=== PATIENT | male | born 1960 | race Caucasian/White ===

== ENCOUNTER → 2017-05-21 | Outpatient (CLI) | payer OTHER ==
[~2017-05-21] MED LIST: LISINOPRIL10 MG PO; MOTRIN800 MG; PROZAC; SUBOXONE1 FI1 SL
[2017-05-21 16:16] LABS: VITAMIN D, 25-HYDROXY 18.5 ng/mL (30-100)
== END | disposition home or self-care (01) ==
LOC: LAB 14:11
PROVIDERS: Family Medicine
DX: Z12.5 Encounter for screening for malignant neoplasm of prostate (principal); N40.0 Benign prostatic hyperplasia without lower urinary tract symptoms; E55.9 Vitamin D deficiency, unspecified; D64.9 Anemia, unspecified; R53.83 Other fatigue

== ENCOUNTER → 2017-08-27 | Outpatient (CLI) | payer OTHER ==
[2017-08-27 16:49] LABS: ALKALINE PHOSPHATASE 42 U/L (45-117); BUN 17 mg/dl (7-24); CHLORIDE 105 mmol/L (98-107); CHOLESTEROL 146 mg/dL (<200); CPK 258 U/L (39-308); CREATININE 1.27 mg/dL (0.70-1.30); HDL CHOLESTEROL 65 mg/dl (40-60); LDL CHOLESTEROL 69 mg/dL (9-159); POTASSIUM 4.3 mmol/L (3.5-5.1); SGOT/AST 12 IU/L (3-35); SGPT/ALT 22 U/L (12-78); SODIUM 136 mmol/L (136-145); TOTAL PROTEIN 7.7 gm/dL (6.4-8.2); TRIGLYCERIDES 60 mg/dl (<150); VLDL CHOLESTEROL 12 mg/dL (6-40)
== END | disposition home or self-care (01) ==
LOC: LAB 16:12
PROVIDERS: Family Medicine
DX: E78.00 Pure hypercholesterolemia, unspecified (principal); I10 Essential (primary) hypertension; E55.9 Vitamin D deficiency, unspecified

== ENCOUNTER → 2017-12-24 | Outpatient (CLI) | payer OTHER ==
[2017-12-24 14:57] LABS: HEMATOCRIT 39.5 % (42.0-52.0); HEMOGLOBIN 12.8 g/dl (14.0-18.0); MEAN CELL VOLUME 86.1 fl (80.0-94.0); MEAN CORPUSCULAR HGB 27.9 pg (27.0-31.0); MEAN CORPUSCULAR HGB CONC 32.4 g/dl (33.0-37.0); MEAN PLATELET VOLUME 8.9 fl (9.6-12.3); RED BLOOD COUNT 4.59 10*6/uL (4.50-5.90); RED CELL DISTRI WIDTH 13.8 % (0-14.5); WHITE BLOOD COUNT 6.7 10*3/uL (4.8-10.8)
[2017-12-24 15:13] LABS: ALBUMIN 4.4 gm/dl (3.1-4.5); ALKALINE PHOSPHATASE 39 U/L (45-117); BUN 14 mg/dl (7-24); CHLORIDE 103 mmol/L (98-107); CHOLESTEROL 161 mg/dL (<200); CREATININE 1.34 mg/dL (0.70-1.30); HDL CHOLESTEROL 67 mg/dl (40-60); LDL CHOLESTEROL 78 mg/dL (9-159); POTASSIUM 4.6 mmol/L (3.5-5.1); SGOT/AST 18 IU/L (3-35); SGPT/ALT 27 U/L (12-78); SODIUM 138 mmol/L (136-145); TOTAL PROTEIN 7.9 gm/dL (6.4-8.2); TRIGLYCERIDES 80 mg/dl (<150); VLDL CHOLESTEROL 16 mg/dL (6-40)
[2017-12-24 15:35] LABS: VITAMIN D, 25-HYDROXY 28.1 ng/mL (30-100)
== END | disposition home or self-care (01) ==
LOC: LAB 14:21
PROVIDERS: Family Medicine
DX: E55.9 Vitamin D deficiency, unspecified (principal); E78.00 Pure hypercholesterolemia, unspecified; I10 Essential (primary) hypertension; N40.0 Benign prostatic hyperplasia without lower urinary tract symptoms

== ENCOUNTER 2018-05-13 22:20 | Inpatient (IN) | payer OTHER ==
[~2018-05-13] VITALS: Ht 177.8 cm; Wt 102.1 kg
--- NOTE | ~2018-05-13 | WRIGHTHP ---
[place], [place] PATIENT HISTORY AND PHYSICAL EXAM NAME: [facility]UZ [facility]: [id number] UNIT #: [id number] ROOM: [facility] DOCTOR: CASSANDRA ABRAHAM MD BIRTHDATE: [birth year] DOS: 05/14/2018 HISTORY OF PRESENT ILLNESS: The patient is a 57-year-old gentleman with a past medical history of benign essential hypertension; chronic back pains; opioid dependence; major depression, recurrent; hyperlipidemia and BPH. The patient presented to the Emergency Department at [facility] after eating dinner. The patient became sick, nauseous, started vomiting, became diaphoretic and had diarrhea. The patient believed he had food poisoning. The patient was found to be in acute kidney failure with elevation of BUN and creatinine and had significant leukocytosis, dehydration. The patient was considered to have severe sepsis and gastroenteritis in the ER. After admission, the patient is starting to feel better. His diarrhea is resolving. No more nausea and vomiting or abdominal pains. OBJECTIVE: VITAL SIGNS: Blood pressure 105/61, heart rate 84 beats per minute, breathing 18 times per minute, temperature of 98.3 degrees Fahrenheit. GENERAL APPEARANCE: The patient is alert and oriented x 3, in no visible distress. HEENT AND NECK: Extraocular movements are intact. Sclerae are anicteric. Oral mucosa is moist and clean. No obvious facial weakness. Neck is supple without any lymphadenopathy. No thyromegaly. No JVD. No carotid arterial bruits. LUNGS: Clear to auscultation. No wheezing. No rhonchi. CARDIOVASCULAR SYSTEM: Heart rate is regular in rate and rhythm. S1 and S2 normally audible. No significant murmur or any other abnormal cardiac sounds. ABDOMEN: Soft, nontender. No obvious organomegaly. Bowel sounds are present. No obvious herniation. EXTREMITIES: Without significant cyanosis or edema. Warm to touch. CENTRAL NERVOUS SYSTEM: Alert and oriented x 3. Cranial nerves II-XII are intact. Speech is normal. The patient is able to move all extremities. Normal muscle strength. Deep tendon reflexes are equal on both sides. Plantars were downgoing. IMPRESSION: 1. The patient has acute gastroenteritis with severe leukocytosis and elevation of BUN and creatinine, is being hydrated with normal saline. I will repeat his blood counts tomorrow. The patient had elevated lactic acid level of 2.6 at admission and BUN and creatinine of 20 and 1.84. 2. Sepsis with elevation of lactic acid level, leukocytosis, acute kidney failure with elevation of BUN and creatinine to 20 and 1.84 along with hypotension with a blood pressure of 96 systolic over 48 diastolic, and low-grade fever of 99.7 degrees Fahrenheit. The patient's condition is improving with the hydration with IV fluids and I will repeat his blood counts, BUN and creatinine tomorrow. The patient's lactic acid levels have already returned to normal with hydration with the normal saline. 3. Benign prostatic hypertrophy and urine retention, asymptomatic with finasteride. 4. Gastroesophageal reflux disease and esophagitis, treated and asymptomatic with omeprazole. 5. Major depression, recurrent, [id number], treated with fluoxetine, [place], [place] PATIENT HISTORY AND PHYSICAL EXAM NAME: JEANNA CRUZ UNIT #: [id number] ROOM: [facility] DOCTOR: CASSANDRA ABRAHAM MD BIRTHDATE: [birth year] asymptomatic. 6. History of prescription opioid addiction, treated with Suboxone, which has been continued. CASSANDRA ABRAHAM MD CM:HISPHYS:PATIENT HISTORY AND PHYSICAL EXAMINATION [id number] [phone] CASSANDRA ABRAHAM MD 05/15/18 [id number] interface
--- NOTE | ~2018-05-13 | DS ---
[place], [place] DISCHARGE SUMMARY NAME: JEANNA CRUZ UNIT #: [id number] ROOM: 501 DOCTOR: CASSANDRA ABRAHAM MD BIRTHDATE: [birth year] DOS: 05/15/2018 DISCHARGE DIAGNOSES: 1. Dehydration, elevation of BUN and creatinine, acute kidney failure, resolved with hydration with normal saline. 2. Acute viral gastroenteritis with vomiting and diarrhea, resolved. 3. Major depression, recurrent, mild. 4. Opioid dependence, the patient on Suboxone. 5. Gastroesophageal reflux disease and esophagitis, asymptomatic with omeprazole. 6. Benign prostatic hypertrophy and urine retention, asymptomatic with finasteride. 7. Chronic constipation. The patient asked to take Colace on a regular basis now. HOSPITAL COURSE: The patient presented to the Emergency Department at [facility] with acute diarrhea, nausea, vomiting with elevation of BUN and creatinine to 20 and 1.8, lactic acid elevation of 2.6 and leukocytosis with a white cell count of 19,300 showing sepsis. The patient was admitted and started on treatment with anti-nausea and hydrated with normal saline and his symptoms resolved. He is completely asymptomatic now, BUN and creatinine and white cell counts have returned to normal. The patient is being discharged to home to follow up with Dr. Nemesio Tuttle, his PCP within this week. FINAL DIAGNOSES: 1. Major depression, recurrent, mild, treated and controlled. The patient on fluoxetine. 2. Benign prostatic hyperplasia and urinary retention, asymptomatic, the patient on finasteride. 3. Opioid dependence, being treated with small dose of Suboxone, which was continued. 4. Chronic constipation for which the patient was recommended to start using Colace 200 mg daily and also reports chronic constipation to his PCP. DISCHARGE MEDICATIONS: The patient will continue on Suboxone as he was getting before, fluoxetine 60 mg daily, omeprazole 40 mg daily, finasteride 5 mg daily, Colace 200 mg a day. [place], [place] DISCHARGE SUMMARY NAME: JEANNA CRUZ UNIT #: [id number] ROOM: [facility] DOCTOR: CASSANDRA ABRAHAM MD BIRTHDATE: [birth year] CASSANDRA ABRAHAM MD CM:ANNI [id number] CASSANDRA ABRAHAM MD 05/15/18 2153 interface
[2018-05-13 22:20] VITALS: BP 93/52
[~2018-05-13 22:20] MED LIST changes: +SUBOXONE 2 MG-1 EACH SL; -SUBOXONE1 FI1 SL
[2018-05-13] MEDS ORDERED: OSTERA TABLET1 EACH PO (22:25)
[2018-05-13] MEDS ORDERED: FLUOXETINE HYDR20 M1 PO (22:25)
[2018-05-13 22:36] LABS: BASO # 0.1 10*3/uL (0.0-0.1); BASO % 0.3 % (0.0-1.0); EOS # 0.2 10*3/uL (0.0-0.4); EOS % 1.2 % (1.0-4.0); HEMATOCRIT 39.9 % (42.0-52.0); HEMOGLOBIN 12.9 g/dl (14.0-18.0); LYMPH # 2.4 10*3/uL (1.3-4.4); LYMPH % 12.4 % (27.0-41.0); MEAN CELL VOLUME 86.7 fl (80.0-94.0); MEAN CORPUSCULAR HGB CONC 32.3 g/dl (33.0-37.0); MEAN PLATELET VOLUME 8.8 fl (9.6-12.3); MONO # 1.1 10*3/uL (0.1-1.0); MONO % 5.8 % (3.0-9.0); NEUT # 15.4 10*3/uL (2.3-7.9); NEUT % 79.8 % (47.0-73.0); PLATELET COUNT AUTOMATED 272 10*3/uL (130-400); RED CELL DISTRI WIDTH 13.9 % (0-14.5); WHITE BLOOD COUNT 19.3 10*3/uL (4.8-10.8)
[2018-05-13 22:44] LABS: ACT PARTIAL THROMBO TIME 20.7 SECONDS (20.8-31.5)
[2018-05-13 22:54] LABS: ALBUMIN 4.4 gm/dl (3.1-4.5); ALKALINE PHOSPHATASE 44 U/L (45-117); BUN 20 mg/dl (7-24); CHLORIDE 105 mmol/L (98-107); CREATININE 1.84 mg/dL (0.70-1.30); POTASSIUM 4.6 mmol/L (3.5-5.1); SGOT/AST 13 IU/L (3-35); SGPT/ALT 20 U/L (12-78); SODIUM 140 mmol/L (136-145)
[2018-05-13 22:55] VITALS: BP 91/85
[2018-05-13 22:55] LABS: TROPONIN I < 0.015 ng/ml (<0.045)
[2018-05-14 00:25] LABS: BILIRUBIN NEGATIVE (NEGATIVE); BLOOD NEGATIVE (NEGATIVE); CLARITY CLEAR (CLEAR); COLOR YELLOW (YELLOW); GLUCOSE NEGATIVE (NEGATIVE); KETONE TRACE (NEGATIVE); LEUKO ESTERASE TRACE (NEGATIVE); NITRITE NEGATIVE (NEGATIVE); PH 5.5 (5.0-9.0)
[2018-05-14 00:31] LABS: BACTERIA 2+; EPITHELIAL CELLS 0-2; HYALINE CAST TNTC; MUCOUS TRACE; RBC 0-2 rbc/hpf (0-2)
[2018-05-14 00:38] LABS: URINE AMPHETAMINES < 1000 (1000ng/ml); URINE BARBITURATES < 200 (200ng/ml); URINE BENZODIAZEPINES < 200 (200ng/ml); URINE CANNABINOIDS (THC) < 50 (50ng/ml); URINE COCAINE < 300 (300ng/ml); URINE METHADONE < 300 (300ng/ml); URINE OPIATES < 300 (300ng/ml); URINE PHENCYCLIDINE < 25 (25ng/ml)
[2018-05-14 01:45] VITALS: BP 99/64
[2018-05-14] MEDS ORDERED: CRESTOR5 MG PO (02:04)
[2018-05-14] MEDS ORDERED: VIT D2 PO (02:12)
[2018-05-14] MEDS ORDERED: PROSCAR5 M1 PO (02:13)
[2018-05-14] MEDS ORDERED: OMEPRAZOLE40 MG PO (02:14)
[2018-05-14] MEDS ORDERED: B12,B-12,B 12500 MC1 PO (02:15)
[2018-05-14 08:00] VITALS: BP 96/48
[2018-05-14] MEDS ORDERED: SUBOXONE 2 MG-1 EACH SL ×2 (10:46→10:48)
[2018-05-14 12:00] VITALS: BP 105/59
[2018-05-14 16:00] VITALS: BP 105/61
[2018-05-14 20:00] VITALS: BP 103/57
[2018-05-15] VITALS: BP 104/58
[2018-05-15 06:36] LABS: BASO % 0.2 % (0.0-1.0); EOS # 0.2 10*3/uL (0.0-0.4); EOS % 2.4 % (1.0-4.0); LYMPH # 2.7 10*3/uL (1.3-4.4); LYMPH % 34.2 % (27.0-41.0); MEAN CELL VOLUME 89.2 fl (80.0-94.0); MEAN CORPUSCULAR HGB 27.6 pg (27.0-31.0); MEAN CORPUSCULAR HGB CONC 30.9 g/dl (33.0-37.0); MEAN PLATELET VOLUME 9.4 fl (9.6-12.3); MONO # 0.6 10*3/uL (0.1-1.0); MONO % 7.6 % (3.0-9.0); NEUT # 4.4 10*3/uL (2.3-7.9); NEUT % 55.4 % (47.0-73.0); PLATELET COUNT AUTOMATED 230 10*3/uL (130-400); RED BLOOD COUNT 3.52 10*6/uL (4.50-5.90); RED CELL DISTRI WIDTH 14.6 % (0-14.5)
[2018-05-15 06:38] LABS: HEMATOCRIT 31.4 % (42.0-52.0); HEMOGLOBIN 9.7 g/dl (14.0-18.0)
[2018-05-15 06:58] LABS: BUN 15 mg/dl (7-24); CHLORIDE 109 mmol/L (98-107); CREATININE 1.09 mg/dL (0.70-1.30); POTASSIUM 4.8 mmol/L (3.5-5.1); SODIUM 140 mmol/L (136-145)
[2018-05-15 08:00] VITALS: BP 113/62
[2018-05-15 12:00] VITALS: BP 122/65
== END 2018-05-15 14:47 | disposition home or self-care (01) | DRG 872 ==
LOC: ED 22:20 → EDHOLD 05-14 00:44 → 5E 05-14 00:53
PROVIDERS: Internal Medicine; Student in an Organized Health Care Education/Training Program
DX: A41.9 Sepsis, unspecified organism (principal); N17.9 Acute kidney failure, unspecified; I95.9 Hypotension, unspecified; F33.1 Major depressive disorder, recurrent, moderate; F11.20 Opioid dependence, uncomplicated; E78.5 Hyperlipidemia, unspecified; G89.29 Other chronic pain; I10 Essential (primary) hypertension; R65.20 Severe sepsis without septic shock; M54.9 Dorsalgia, unspecified; N40.1 Benign prostatic hyperplasia with lower urinary tract symptoms; R33.9 Retention of urine, unspecified; K21.0 Gastro-esophageal reflux disease with esophagitis; E86.0 Dehydration; A08.4 Viral intestinal infection, unspecified; K59.09 Other constipation; Z79.899 Other long term (current) drug therapy; Z82.49 Family history of ischemic heart disease and other diseases of the circulatory system; Z83.3 Family history of diabetes mellitus

== ENCOUNTER → 2018-05-27 | Outpatient (CLI) | payer OTHER ==
[~2018-05-27] MED LIST changes: +B12,B-12,B 12500 MC1 PO; +CRESTOR5 MG PO; +FLUOXETINE HYDR20 M1 PO; +OMEPRAZOLE40 MG PO; +OSTERA TABLET1 EACH PO; +PROSCAR5 M1 PO; +VIT D2 PO
[2018-05-27 14:25] LABS: BUN 14 mg/dl (7-24); CHLORIDE 104 mmol/L (98-107); CHOLESTEROL 221 mg/dL (<200); CPK 149 U/L (39-308); HDL CHOLESTEROL 58 mg/dl (40-60); POTASSIUM 4.1 mmol/L (3.5-5.1); SODIUM 138 mmol/L (136-145)
[2018-05-27 14:27] LABS: ALKALINE PHOSPHATASE 36 U/L (45-117); CREATININE 1.25 mg/dL (0.70-1.30); LDL CHOLESTEROL 154 mg/dL (9-159); SGOT/AST 13 IU/L (3-35); SGPT/ALT 17 U/L (12-78); TOTAL PROTEIN 7.1 gm/dL (6.4-8.2); TRIGLYCERIDES 47 mg/dl (<150); VLDL CHOLESTEROL 9 mg/dL (6-40)
== END | disposition home or self-care (01) ==
LOC: LAB 13:07
PROVIDERS: Family Medicine
DX: K21.9 Gastro-esophageal reflux disease without esophagitis (principal); E78.00 Pure hypercholesterolemia, unspecified; E55.9 Vitamin D deficiency, unspecified

== ENCOUNTER → 2019-01-06 | Outpatient (CLI) | payer OTHER ==
[2019-01-06 16:31] LABS: ALBUMIN 3.9 gm/dl (3.1-4.5); ALKALINE PHOSPHATASE 40 U/L (45-117); BUN 18 mg/dl (7-24); CHLORIDE 106 mmol/L (98-107); CHOLESTEROL 206 mg/dL (<200); CPK 175 U/L (39-308); CREATININE 1.32 mg/dL (0.70-1.30); HDL CHOLESTEROL 61 mg/dl (40-60); LDL CHOLESTEROL 134 mg/dL (9-159); POTASSIUM 5.1 mmol/L (3.5-5.1); SGOT/AST 8 IU/L (3-35); SGPT/ALT 14 U/L (12-78); SODIUM 140 mmol/L (136-145); TOTAL PROTEIN 7.5 gm/dL (6.4-8.2); TRIGLYCERIDES 56 mg/dl (<150); VLDL CHOLESTEROL 11 mg/dL (6-40)
== END | disposition home or self-care (01) ==
LOC: LAB 15:40
PROVIDERS: Family Medicine
DX: E78.00 Pure hypercholesterolemia, unspecified (principal); K21.9 Gastro-esophageal reflux disease without esophagitis; F41.1 Generalized anxiety disorder; E74.00 Glycogen storage disease, unspecified

== ENCOUNTER → 2019-07-14 | Outpatient (CLI) | payer OTHER ==
[2019-07-14 17:15] LABS: HEMATOCRIT 36.2 % (42.0-52.0); HEMOGLOBIN 11.5 g/dl (14.0-18.0); MEAN CORPUSCULAR HGB 27.6 pg (27.0-31.0); MEAN CORPUSCULAR HGB CONC 31.8 g/dl (33.0-37.0); MEAN PLATELET VOLUME 9.3 fl (9.6-12.3); RED BLOOD COUNT 4.16 10*6/uL (4.50-5.90); RED CELL DISTRI WIDTH 13.7 % (0-14.5); WHITE BLOOD COUNT 4.2 10*3/uL (4.8-10.8)
[2019-07-14 17:44] LABS: ALBUMIN 4.1 gm/dl (3.1-4.5); ALKALINE PHOSPHATASE 40 U/L (45-117); BUN 10 mg/dl (7-24); CHLORIDE 106 mmol/L (98-107); CHOLESTEROL 191 mg/dL (<200); CPK 174 U/L (39-308); CREATININE 1.14 mg/dL (0.70-1.30); HDL CHOLESTEROL 55 mg/dl (40-60); LDL CHOLESTEROL 125 mg/dL (9-159); POTASSIUM 4.3 mmol/L (3.5-5.1); SGOT/AST 9 IU/L (3-35); SGPT/ALT 13 U/L (12-78); SODIUM 136 mmol/L (136-145); TOTAL PROTEIN 7.3 gm/dL (6.4-8.2); TRIGLYCERIDES 53 mg/dl (<150); VLDL CHOLESTEROL 11 mg/dL (6-40)
[2019-07-14 17:51] LABS: VITAMIN D, 25-HYDROXY 47.6 ng/mL (30-100)
== END | disposition home or self-care (01) ==
LOC: LAB 15:38
PROVIDERS: Family Medicine
DX: Z12.5 Encounter for screening for malignant neoplasm of prostate (principal); E74.9 Disorder of carbohydrate metabolism, unspecified; E78.00 Pure hypercholesterolemia, unspecified

== ENCOUNTER → 2019-12-22 | Outpatient (CLI) | payer OTHER ==
[2019-12-22 11:49] LABS: HEMATOCRIT 36.4 % (42.0-52.0); HEMOGLOBIN 11.7 g/dl (14.0-18.0); MEAN CELL VOLUME 86.7 fl (80.0-94.0); MEAN CORPUSCULAR HGB 27.9 pg (27.0-31.0); MEAN CORPUSCULAR HGB CONC 32.1 g/dl (33.0-37.0); MEAN PLATELET VOLUME 8.7 fl (9.6-12.3); RED BLOOD COUNT 4.2 10*6/uL (4.50-5.90); RED CELL DISTRI WIDTH 13.4 % (0-14.5); WHITE BLOOD COUNT 4.3 10*3/uL (4.8-10.8)
[2019-12-22 12:33] LABS: ALBUMIN 4.2 gm/dl (3.1-4.5); ALKALINE PHOSPHATASE 46 U/L (45-117); BUN 16 mg/dl (7-24); CHLORIDE 105 mmol/L (98-107); CHOLESTEROL 195 mg/dL (<200); CREATININE 1.26 mg/dL (0.70-1.30); HDL CHOLESTEROL 59 mg/dl (40-60); LDL CHOLESTEROL 125 mg/dL (9-159); POTASSIUM 4.4 mmol/L (3.5-5.1); SGOT/AST 13 IU/L (3-35); SGPT/ALT 20 U/L (12-78); SODIUM 138 mmol/L (136-145); TOTAL PROTEIN 7.8 gm/dL (6.4-8.2); TRIGLYCERIDES 55 mg/dl (<150); VLDL CHOLESTEROL 11 mg/dL (6-40)
[2019-12-25 15:48] LABS: VITAMIN D, 25-HYDROXY 46.5 ng/mL (30-100)
== END ==
LOC: LAB 11:08
PROVIDERS: Family Medicine
DX: E55.9 Vitamin D deficiency, unspecified (principal); E78.00 Pure hypercholesterolemia, unspecified; K21.9 Gastro-esophageal reflux disease without esophagitis; F41.1 Generalized anxiety disorder; E74.00 Glycogen storage disease, unspecified

== ENCOUNTER → 2020-08-16 | Outpatient (CLI) | payer OTHER ==
[2020-08-16 15:01] LABS: HEMATOCRIT 35.7 % (42.0-52.0); MEAN CELL VOLUME 87.9 fl (80.0-94.0); MEAN CORPUSCULAR HGB 27.6 pg (27.0-31.0); MEAN CORPUSCULAR HGB CONC 31.4 g/dl (33.0-37.0); MEAN PLATELET VOLUME 8.8 fl (9.6-12.3); RED BLOOD COUNT 4.06 10*6/uL (4.50-5.90); RED CELL DISTRI WIDTH 14.1 % (0-14.5); WHITE BLOOD COUNT 4.8 10*3/uL (4.8-10.8)
[2020-08-16 15:29] LABS: ALKALINE PHOSPHATASE 35 U/L (45-117); BUN 16 mg/dl (7-24); CHLORIDE 107 mmol/L (98-107); CHOLESTEROL 224 mg/dL (<200); CREATININE 1.06 mg/dL (0.70-1.30); HDL CHOLESTEROL 60 mg/dl (40-60); LDL CHOLESTEROL 153 mg/dL (9-159); POTASSIUM 4.5 mmol/L (3.5-5.1); SGOT/AST 7 IU/L (3-35); SGPT/ALT 20 U/L (12-78); SODIUM 138 mmol/L (136-145); TOTAL PROTEIN 7.4 gm/dL (6.4-8.2); TRIGLYCERIDES 57 mg/dl (<150); VLDL CHOLESTEROL 11 mg/dL (6-40)
== END | disposition home or self-care (01) ==
LOC: LAB 14:38
PROVIDERS: ATTEND Family Medicine
DX: Z12.5 Encounter for screening for malignant neoplasm of prostate (principal); E55.9 Vitamin D deficiency, unspecified; E78.5 Hyperlipidemia, unspecified; Z79.899 Other long term (current) drug therapy

== ENCOUNTER → 2021-02-28 | Outpatient (CLI) | payer OTHER ==
[2021-02-28 15:13] LABS: ALBUMIN 3.9 gm/dl (3.1-4.5); ALKALINE PHOSPHATASE 40 U/L (45-117); BUN 13 mg/dl (7-24); CHLORIDE 105 mmol/L (98-107); CHOLESTEROL 215 mg/dL (<200); CREATININE 1.19 mg/dL (0.70-1.30); HDL CHOLESTEROL 65 mg/dl (40-60); LDL CHOLESTEROL 139 mg/dL (9-159); POTASSIUM 4.3 mmol/L (3.5-5.1); SGOT/AST 9 IU/L (3-35); SGPT/ALT 18 U/L (12-78); SODIUM 137 mmol/L (136-145); TOTAL PROTEIN 7.6 gm/dL (6.4-8.2); TRIGLYCERIDES 53 mg/dl (<150); VLDL CHOLESTEROL 11 mg/dL (6-40)
[2021-02-28 16:23] LABS: VITAMIN D, 25-HYDROXY 47.7 ng/mL (30-100)
== END | disposition home or self-care (01) ==
LOC: LAB 14:08
PROVIDERS: ATTEND Family Medicine
DX: E78.00 Pure hypercholesterolemia, unspecified (principal)

== ENCOUNTER 2023-02-26 21:01 | Inpatient (IN) | payer OTHER ==
[~2023-02-26] VITALS: Ht 177.8 cm; Wt 101.2 kg
[2023-02-26 21:19] VITALS: BP 153/85
[2023-02-26 21:31] LABS: BASO # 0.1 10*3/uL (0.0-0.1); BASO % 0.8 % (0.0-1.0); EOS # 0.6 10*3/uL (0.0-0.4); EOS % 9.2 % (1.0-4.0); HEMATOCRIT 31.6 % (42.0-52.0); LYMPH # 2.8 10*3/uL (1.3-4.4); LYMPH % 41.8 % (27.0-41.0); MEAN CELL VOLUME 87.3 fl (80.0-94.0); MEAN CORPUSCULAR HGB 27.9 pg (27.0-31.0); MEAN PLATELET VOLUME 8.8 fl (9.6-12.3); MONO # 0.7 10*3/uL (0.1-1.0); NEUT # 2.5 10*3/uL (2.3-7.9); NEUT % 37.2 % (47.0-73.0); PLATELET COUNT AUTOMATED 283 10*3/uL (130-400); RED BLOOD COUNT 3.62 10*6/uL (4.50-5.90); RED CELL DISTRI WIDTH 13.5 % (0-14.5); WHITE BLOOD COUNT 6.6 10*3/uL (4.8-10.8)
[2023-02-26 21:42] LABS: ACT PARTIAL THROMBO TIME 27.3 SECONDS (20.0-32.1)
[2023-02-26 21:46] LABS: ALKALINE PHOSPHATASE 43 U/L (46-116); BUN 24 mg/dl (9-23); CHLORIDE 104 mmol/L (98-107); POTASSIUM 4.1 mmol/L (3.4-5.1); SGPT/ALT 18 U/L (10-49); TOTAL PROTEIN 7.5 gm/dL (6.0-8.0)
[2023-02-26 22:29] VITALS: BP 123/67
[2023-02-26 23:31] VITALS: BP 107/60
[2023-02-26] MEDS ORDERED: DULOXETINE HCL60 MG PO (23:58)
[2023-02-27] VITALS (8 sets, daily range): BP systolic 91–132; BP diastolic 48–73
[2023-02-27] MEDS ORDERED: CENTRUM SILVER1 EACH PO
[2023-02-27] MEDS ORDERED: OSTERA TABLET1 EACH PO (02:04)
[2023-02-27 09:20] LABS: ACT PARTIAL THROMBO TIME 34.8 SECONDS (20.0-32.1)
[2023-02-27 10:08] LABS: CHOLESTEROL 121 mg/dL (<200); LDL CHOLESTEROL 59 mg/dL (9-159); TRIGLYCERIDES 53 mg/dl (<150)
[2023-02-28] VITALS: BP 107/59
[2023-02-28 04:00] VITALS: BP 102/56
[2023-02-28 08:00] VITALS: BP 107/63
[2023-02-28 12:00] VITALS: BP 127/70
[2023-02-28 16:00] VITALS: BP 102/53; BP 127/70
[2023-02-28 20:00] VITALS: BP 109/69
[2023-03-01] VITALS: BP 110/64
== END 2023-03-01 07:44 | disposition short-term general hospital (02) | DRG 282 ==
LOC: ED 21:01 → 4E 23:46 → EDHOLD 23:46 → 5E 02-27 00:23 → ICCU 02-27 08:55 → 4E 02-27 18:14
PROVIDERS: Emergency Medicine; Internal Medicine Cardiovascular Disease; ADMIT Internal Medicine; ATTEND Internal Medicine
DX: I21.4 Non-ST elevation (NSTEMI) myocardial infarction (principal); I10 Essential (primary) hypertension; G89.29 Other chronic pain; M54.59 Other low back pain; N40.0 Benign prostatic hyperplasia without lower urinary tract symptoms; E78.2 Mixed hyperlipidemia; Z80.1 Family history of malignant neoplasm of trachea, bronchus and lung; Z82.0 Family history of epilepsy and other diseases of the nervous system; Z83.3 Family history of diabetes mellitus; Z79.899 Other long term (current) drug therapy

== ENCOUNTER 2023-08-02 09:46 | Emergency (ER) | payer OTHER ==
[~2023-08-02] VITALS: Ht 177.8 cm; Wt 97.1 kg
[~2023-08-02 09:46] MED LIST changes: +CENTRUM SILVER1 EACH PO; +DULOXETINE HCL60 MG PO
[2023-08-02 10:36] LABS: BASO # 0.1 10*3/uL (0.0-0.1); BASO % 0.6 % (0.0-1.0); EOS # 0.1 10*3/uL (0.0-0.4); EOS % 1.3 % (1.0-4.0); HEMATOCRIT 36.9 % (42.0-52.0); LYMPH # 1.2 10*3/uL (1.3-4.4); LYMPH % 11.9 % (27.0-41.0); MEAN CELL VOLUME 87.4 fl (80.0-94.0); MEAN CORPUSCULAR HGB 28.2 pg (27.0-31.0); MEAN CORPUSCULAR HGB CONC 32.2 g/dl (33.0-37.0); MEAN PLATELET VOLUME 8.9 fl (9.6-12.3); MONO # 0.5 10*3/uL (0.1-1.0); MONO % 5.4 % (3.0-9.0); NEUT # 8.1 10*3/uL (2.3-7.9); NEUT % 80.5 % (47.0-73.0); PLATELET COUNT AUTOMATED 266 10*3/uL (130-400); RED BLOOD COUNT 4.22 10*6/uL (4.50-5.90); RED CELL DISTRI WIDTH 13.6 % (0-14.5)
[2023-08-02 10:47] LABS: ACT PARTIAL THROMBO TIME 26.5 SECONDS (20.0-32.1)
[2023-08-02 10:55] LABS: ALKALINE PHOSPHATASE 38 U/L (46-116); BUN 12 mg/dl (9-23); CHLORIDE 106 mmol/L (98-107); POTASSIUM 3.7 mmol/L (3.4-5.1); SGPT/ALT 17 U/L (10-49); TOTAL PROTEIN 7.4 gm/dL (6.0-8.0)
== END 2023-08-03 00:58 | disposition short-term general hospital (02) ==
LOC: ED 09:46
PROVIDERS: Internal Medicine
DX: K56.609 Unspecified intestinal obstruction, unspecified as to partial versus complete obstruction (principal); I10 Essential (primary) hypertension; F32.A Depression, unspecified; E78.00 Pure hypercholesterolemia, unspecified

== ENCOUNTER → 2023-09-20 | Outpatient (CLI) | payer OTHER | END | disposition home or self-care (01) | LOC: US 00:59 | PROVIDERS: ATTEND Family Medicine | DX: R10.819 Abdominal tenderness, unspecified site (principal); R10.32 Left lower quadrant pain ==